=== PATIENT | male | born 1955 | race Caucasian/White ===

== ENCOUNTER 2019-05-19 11:22 | Emergency (ER) | payer BC, OTHER ==
[2019-05-19 12:24] VITALS: BP 153/88
--- NOTE | 2019-05-19 14:08 | UC ---
General HPI - HPI Summary HPI Summary: Patient is a 63-year-old male presenting with tick bite to right upper back. Patient states he removed the tick this morning and believes he must picked it up on either Tuesday or Tuesday while hunting. Patient believes the head of the tick might still be attached. He denies fever and chills. Denies nausea or vomiting. Denies drainage, itching, or bleeding from the area. - History of Current Complaint Chief Complaint: [place] Stated Complaint: TICK BITE Hx Obtained From: Patient Pain Intensity: 0 - Allergy/Home Medications Allergies/Adverse Reactions: Allergies Allergy/AdvReac Type Severity Reaction Status Date / Time No Known Allergies Allergy Verified 05/19/19 12:15 Home Medications: Home Medications Aspirin 81 mg CHEW TAB* [Aspirin Low Dose TAB*] 81 mg PO DAILY 05/19/19 [ History Confirmed 05/19/19] Lisinopril TAB* [Prinivil TAB*] 5 mg PO DAILY 05/19/19 [History Confirmed ] Omeprazole 20 mg PO DAILY 05/19/19 [History Confirmed 05/19/19] Simvastatin 20 mg PO DAILY 05/19/19 [History Confirmed 05/19/19] PMH/Surg Hx/FS Hx/Imm Hx Previously Healthy: Yes Endocrine History: Dyslipidemia Cardiovascular History: Hypertension GI/ History: Gastroesophageal Reflux - Surgical History Surgical History: Yes Surgery Procedure, Year, and Place: HERNIA REPAIR - Family History Known Family History: Positive: Unknown, Non-Contributory - Social History Alcohol Use: Occasionally Substance Use Type: None Smoking Status (MU): Former Smoker When Did the Patient Quit Smoking/Using Tobacco: EARLY Review of Systems All Other Systems Reviewed And Are Negative: No Constitutional: Positive: Negative. Negative: Fever, Chills Skin: Positive: Other - Tick bite of right upper back Respiratory: Positive: Negative Cardiovascular: Positive: Negative Gastrointestinal: Positive: Negative. Negative: Vomiting, Nausea Musculoskeletal: Positive: Negative Neurological: Positive: Negative Physical Exam Triage Information Reviewed: Yes Appearance: Well-Appearing, No Pain Distress, Well-Nourished Vital Signs: Initial Vital Signs Temp 97.4 F 05/19/19 12:18 Pulse 63 05/19/19 12:18 Resp 17 05/19/19 12:18 BP 153/88 05/19/19 12:18 Pulse Ox 100 05/19/19 12:18 Vital Signs Reviewed: Yes Eyes: Positive: Conjunctiva Clear ENT: Positive: Hearing grossly normal Neck: Positive: Supple Respiratory: Positive: No respiratory distress Neurological: Positive: Alert Psychological: Positive: Age Appropriate Behavior Skin: Positive: Other - 1 cm circular area of erythema with central dark red spot where tick was presumably attached. No sign of infection Course/Dx - Course Course Of Treatment: Educated the patient on tick bites and Lyme disease. I treated the patient with 200 mg of doxycycline to prevent Lyme disease. Educated him on signs and symptoms of infected tick bite and to return or go to the ED if he experiences them. Instructed to follow up with PCP if needed. Patient voiced understanding and agreed with the treatment plan. - Diagnoses Provider Diagnosis: Tick bite of right upper back excluding scapular region, Elevated blood pressure reading in office with diagnosis of hypertension Discharge ED - Sign-Out/Discharge Documenting (check all that apply): Patient Departure All imaging exams completed and their final reports reviewed: No Studies - Discharge Plan Condition: Stable Disposition: HOME Prescriptions: DOXYcycline CAP(*) [DOXYcycline 100MG CAP(*)] 200 mg PO ONCE #2 cap Patient Education Materials: Tick Bite (ED) Referrals: Raz Dumas MD [Primary Care Provider] - If Needed Additional Instructions: As discussed, take the one-time dose of Doxycycline prescribed to you to prevent Lyme Disease. No further treatment is required. Follow up with your PCP if you experience a rash where you were the tick bit you within the next month or so. Return or go to the emergency room if you experience fever, nausea and vomiting , increasing redness, warmth, or drainage from the area. - Billing Disposition and Condition Condition: STABLE Disposition: Home
== END 2019-05-19 14:07 | disposition home or self-care (01) ==
LOC: UCCORT 11:22
DX: S20.461A Insect bite (nonvenomous) of right back wall of thorax, initial encounter (principal); I10 Essential (primary) hypertension; E78.5 Hyperlipidemia, unspecified; K21.9 Gastro-esophageal reflux disease without esophagitis; W57.XXXA Bitten or stung by nonvenomous insect and other nonvenomous arthropods, initial encounter; Y92.9 Unspecified place or not applicable; Z79.82 Long term (current) use of aspirin; Z79.899 Other long term (current) drug therapy; Z87.891 Personal history of nicotine dependence
CPT/HCPCS: 99202; G0463